=== PATIENT | male | born 2000 | race Caucasian/White ===

== ENCOUNTER 2019-03-24 11:09 | Emergency (ER) | payer SELFPAY ==
[~2019-03-24] VITALS: Ht 180.3 cm; Wt 82.6 kg
--- NOTE | 2019-03-24 11:30 | NUR ---
patient came to the ER c/o abd pain for months and worst today, 7/10 pain scale. +nausea, -diarrhea. On room air, breathing evenly and unlabored. ambulatory with steady gait. Will continue to monitor accordingly.
[2019-03-24 11:45] VITALS: BP 124/65
--- NOTE | 2019-03-24 11:45 | NUR ---
Patient discharged to home in stable condition. Written and verbal after care instructions given. Patient verbalizes understanding of instruction.
== END 2019-03-24 11:48 | disposition home or self-care (01) ==
LOC: ER 11:09
DX: K29.70 Gastritis, unspecified, without bleeding (principal)

== ENCOUNTER 2020-03-02 11:04 | Emergency (ER) | payer SELFPAY ==
[~2020-03-02] VITALS: Ht 180.3 cm; Wt 74.2 kg
--- NOTE | 2020-03-02 11:15 | NUR ---
Patient came in to the er c/o "Started having abdominal pain, nausea and vomiting yesterday +chills". On room air, breathing evenly and unlabored. connected to the monitor and pulse ox. kept comfortable, will continue to monitor accordingly.
[2020-03-02] MEDS: ONDANSETRON HCL/PF 4 MG/2 ML VIAL IVP ONE (11:30)
[2020-03-02] MEDS ORDERED: ONDANSETRON HCL/PF 4 MG/2 ML VIAL ONE (11:30)
[2020-03-02] MEDS ORDERED: LORAZEPAM INJ 2 MG/ML VIAL ONE (11:30)
[2020-03-02] MEDS: IV NS 0.9% 1,000 ML BAG IV ONE (11:30)
[2020-03-02] MEDS: LORAZEPAM INJ 2 MG/ML VIAL IV ONE (11:30)
[2020-03-02 11:31] LABS: BASOPHILS % (AUTO) 0.2 % (0.0-2.0); EOSINOPHILS % (AUTO) 0.3 % (0.0-6.0); HEMATOCRIT 48 % (39-51); HEMOGLOBIN 16.3 g/dL (13.5-17.5); LYMPHOCYTES # (AUTO) 0.8 /CMM (0.8-4.8); LYMPHOCYTES % (AUTO) 8.5 % (20.0-44.0); MEAN CORPUSCULAR HGB CONC 34 g/dl (31.0-36.0); MEAN CORPUSCULAR VOLUME 91 fL (80-96); MONOCYTES # (AUTO) 0.3 /CMM (0.1-1.30); MONOCYTES % (AUTO) 2.8 % (2.0-12.0); NEUTROPHILS # (AUTO) 8.4 /CMM (1.8-8.9); NEUTROPHILS % (AUTO) 88.2 % (43.0-81.0); PLATELET COUNT (AUTO) 214 /CMM (150-450); RED BLOOD CELL COUNT(AUTO) 5.29 MIL/uL (4.5-6.0); WHITE BLOOD COUNT (AUTO) 9.5 K/uL (4.3-11.0)
[2020-03-02 11:38] LABS: CALCIUM, SERUM 9.3 mg/dL (8.5-10.1); CREATININE 0.8 mg/dL (0.6-1.3); POTASSIUM 3.8 mmol/L (3.5-5.1)
[2020-03-02 13:22] VITALS: BP 128/81
--- NOTE | 2020-03-02 13:23 | NUR ---
Patient discharged to home in stable condition. Written and verbal after care instructions given. Patient verbalizes understanding of instruction.IV removed. Catheter intact and site benign. Pressure and 4x4 applied to site. No bleeding noted.
== END 2020-03-02 13:23 | disposition home or self-care (01) ==
LOC: ER 11:05
DX: F11.23 Opioid dependence with withdrawal (principal); R10.84 Generalized abdominal pain; R11.10 Vomiting, unspecified
CPT/HCPCS: 36415; 74176; 80048; 85025; 96361; 96374; 96375; 99284; J2060; J2405; J7030